=== PATIENT | male | born 1980 | race Hispanic/Latino ===

== ENCOUNTER 2018-08-21 14:40 | Emergency (ER) | payer OTHER ==
[~2018-08-21] VITALS: Ht 177.8 cm; Wt 83.0 kg
[2018-08-21] MEDS ORDERED: CYCLOBENZAPRINE5 MG PO (15:12)
[2018-08-21] MEDS ORDERED: KETOROLAC TROME10 MG PO (15:12)
--- NOTE | 2018-08-21 16:29 | Diagnostic Imaging Report ---
CERVICAL SPINE X-RAY - 6 VIEWS HISTORY: Neck pain ^[id number] ^[id number] COMPARISON: None available. FINDINGS: Bones: No acute displaced fracture. Osseous alignment is within normal limits. Joints: The joint spaces are well-maintained. Mild anterior osteophytosis at C4-C5 and C5-C6. Soft tissues: The soft tissues appear unremarkable. 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 No acute abnormalities. Signed by: Dr. Aniya Guzman M.D. on 08/21/2018 4:26 PM
[2018-08-21 16:45] VITALS: BP 122/72
== END 2018-08-21 16:47 | disposition home or self-care (01) ==
LOC: FSED 14:40
DX: M54.2 Cervicalgia (principal); S16.1XXA Strain of muscle, fascia and tendon at neck level, initial encounter; V53.5XXA Driver of pick-up truck or van injured in collision with car, pick-up truck or van in traffic accident, initial encounter; Y92.488 Other paved roadways as the place of occurrence of the external cause
CPT/HCPCS: 72050; 99283